=== PATIENT | female | born 1990 | race African-American/Black ===

== ENCOUNTER 2016-10-15 20:52 | Observation (INO) ==
[2016-10-15 21:25] VITALS: BP 141/80
[2016-10-15 21:28] LABS: Bilirubin,Urine Negative (Negative); Blood,Urine Negative (Negative); Clarity,Urine Clear (Clear); Color,Urine Yellow (Yellow); Glucose,Urine (UA) Normal (Normal); Ketones,Urine Negative (Negative); Leukocyte Esterase,Urine Negative (Negative); Nitrite,Urine Negative (Negative); Protein,Urine Negative (Neg-Trace); Specific Gravity,Urine 1.006 (1.010-1.025); Urobilinogen,Urine Normal (Normal)
--- NOTE | 2016-10-15 21:40 | OB/GYN Progress Note ---
Date of Encounter: 10/15/16 Time of Encounter: 21:38 - Assessment and Plan (1) 26 weeks gestation of Current Visit: Yes Status: Acute Receives care with Dr. Garcia (2) Abdominal cramping affecting Current Visit: Yes Status: Acute Symptoms resolved during observation Subjective - Subjective Principal diagnosis: 26 wk IUP Interval history: 26 wk IUP at 26 weeks EGA who received care at Dr. Garcia, presents to emergency department initially complaining of chest pain. She reports chest pain has resolved and then was complaining of a chronic cough for over a month. This is a nonproductive cough. She then reported she had abdominal cramping and was sent to labor and delivery for further evaluation. On arrival to labor and delivery the cramping resolved. The patient is requesting discharge. She denies any vaginal bleeding, UTI sxs or loss of fluid. She has an appointment with her OB doctor in 3 days Antepartum ROS: movement normal, no loss of fluid, no vaginal bleeding, no contractions Objective - Vital Signs Vital Signs: Vital Signs Pulse BP 10/15/16 21:04 105 141/80 Intake and Output 10/15/16 10/15/16 10/15/16 07:59 15:59 23:59 Other: Weight 131 kg Patient Weight 10/15/16 23:59 Weight 131 kg - Exam FHR: auscultation normal FHR comments: Baseline 140s 150s, reassuring, no contractions Auscultation: bilateral: normal Abdomen: Present: soft, gravid. Absent: distention, tenderness Comments: Extremities are nontender, no pretibial edema bilaterally. Heart regular rate and rhythm. HEENT negative. Neck supple - Labs Labs: Abnormal lab results Ur Specific [place] 1.006 (1.010-1.025) L 10/15/16 21:19 - Allied health notes Allied health notes reviewed: nursing
== END 2016-10-15 21:52 | disposition home or self-care (01) ==
LOC: 1NENULAB
PROVIDERS: ADMIT Obstetrics & Gynecology; ATTEND Obstetrics & Gynecology